=== PATIENT | female | born 1990 | race American Indian/Alaskan Native ===

== ENCOUNTER 2016-11-22 15:01 | Outpatient (CLI) | payer MEDICARE ==
--- NOTE | 2016-11-24 08:03 | Vascular Lab Report ---
LOWER EXTREMITY VENOUS DUPLEX: REASON FOR EXAM: Bilateral swelling. COMMENTS ON THE RIGHT: All veins visualized are freely compressible without evidence of internal echogenicity. Flow is spontaneous and phasic throughout. COMMENTS ON THE LEFT: All veins visualized are freely compressible without evidence of internal echogenicity. Flow is spontaneous and phasic throughout. IMPRESSION: No evidence of acute or chronic deep venous thrombosis in either lower extremity.
== END 2016-11-22 15:02 | disposition home or self-care (01) ==
LOC: VAS 15:01
PROVIDERS: ATTEND Internal Medicine Nephrology
DX: R60.0 Localized edema (principal)
CPT/HCPCS: 93970